=== PATIENT | male | born 1985 | race American Indian/Alaskan Native ===

== ENCOUNTER 2021-06-19 14:00 | Emergency (ER) | payer SELFPAY ==
--- NOTE | 2021-06-19 14:09 | Emergency Department Report ---
ED General Adult HPI - General Chief complaint: High BP Stated complaint: STROKE LIKE SYMPTOMS RESOLVED Time Seen by Provider: 06/19/21 14:06 Source: patient Mode of arrival: Stretcher Limitations: No Limitations - History of Present Illness Initial comments: Patient presents with elevated blood pressure. Patient has been out of medication for at least a week. He was on 3 different medications for blood pressure. Today while at work he started to feel lightheaded. He felt like he had a headache. He thought his blood pressure was high. As he was wrapping pallets, he developed some numbness in his left hand. He went to wash his hands and the numbness immediately resolved. Patient states that he went and told his boss. He was not feeling well and felt like he had to hold onto things to stay upright. He was not having chest pain. He had no trouble breathing at that time. There was no cough or congestion. Patient was brought in by ambulance for evaluation. They report his blood pressure was 270s over 170s. - Related Data Allergies Allergy/AdvReac Type Severity Reaction Status Date / Time No Known Allergies Allergy Unverified 06/19/21 14:03 ED Review of Systems ROS: Stated complaint: STROKE LIKE SYMPTOMS RESOLVED Other details as noted in HPI Comment: All other systems reviewed and negative Constitutional: denies: fever Eyes: denies: vision change ENT: denies: throat pain Respiratory: denies: cough Cardiovascular: denies: chest pain Endocrine: denies: unexplained weight loss Gastrointestinal: denies: abdominal pain Genitourinary: denies: dysuria Musculoskeletal: denies: back pain Skin: denies: rash Neurological: as per HPI Hematological/Lymphatic: denies: easy bruising ED Past Medical Hx - Past Medical History Hx Hypertension: Yes - Family History Family history: hypertension ED Physical Exam - General Limitations: No Limitations, Other (Pulse ox noted and normal) General appearance: alert, in no apparent distress - Head Head exam: Present: atraumatic, normocephalic, normal inspection - Eye Eye exam: Present: PERRL, EOMI, other (Right subconjunctival hemorrhage). Absent: scleral icterus - ENT ENT exam: Present: normal orophraynx, normal external ear exam - Neck Neck exam: Present: normal inspection. Absent: tenderness, meningismus - Respiratory Respiratory exam: Present: normal lung sounds bilaterally. Absent: respiratory distress - Cardiovascular Cardiovascular Exam: Present: regular rate, normal rhythm - GI/Abdominal GI/Abdominal exam: Present: soft. Absent: distended, tenderness - Extremities Exam Extremities exam: Present: normal capillary refill. Absent: calf tenderness - Back Exam Back exam: Absent: CVA tenderness (R), CVA tenderness (L) - Neurological Exam Neurological exam: Present: alert, oriented X3, CN II-XII intact, normal gait, motor sensory deficit, other (NIH score is 0). Absent: reflexes normal - Psychiatric Psychiatric exam: Present: normal affect, normal mood - Skin Skin exam: Present: warm, dry ED Course Vital Signs 06/19/21 06/19/21 06/19/21 14:11 14:18 14:20 Pulse Rate 80 Respiratory 16 0 L 18 Rate Blood Pressure Blood Pressure 180/110 [Left] O2 Sat by Pulse 100 100 98 Oximetry 06/19/21 06/19/21 06/19/21 14:29 14:30 14:46 Pulse Rate 68 64 70 Respiratory 9 L 17 Rate Blood Pressure 228/143 228/143 219/142 Blood Pressure [Left] O2 Sat by Pulse 100 99 Oximetry 06/19/21 06/19/21 14:53 15:00 Pulse Rate 73 Respiratory 9 L Rate Blood Pressure 218/143 Blood Pressure 240/146 [Left] O2 Sat by Pulse 100 Oximetry - Reevaluation(s) Reevaluation #1: 06/19/21 14:06 EMS was met. Manual blood pressure was requested. Reevaluation #2: 06/19/21 14:12 9 her blood pressure was 180/110. Oral medications have been ordered. Reevaluation #3: 06/19/21 15:01 Blood pressures are noted. Map is significantly elevated. Cardene drip was ordered along with labs. Patient will require admission for hypertensive emergency. Reevaluation #4: 06/19/21 16:08 Chemistries are noted. ED Medical Decision Making - Lab Data Result diagrams: 06/19/21 15:07 06/19/21 15:07 Rhythm strip: Normal sinus rhythm without ectopy. Monitor observe 10 seconds. - Radiology Data Radiology results: report reviewed - Medical Decision Making Patient presents with hypertensive emergency. He had transient numbness of his left hand. CT findings are concerning for press syndrome. Cardene drip has been started. We have dosed the patient with hydralazine and amlodipine, his usual medications at home. I did not order nifedipine as the computer defaults to amlodipine for this. Case was discussed with Dr. Plasencia regarding the admission. He does have elevated BUN and creatinine. He states that he has been told that these are elevated in the past but we have no old records for comparison. He is uncertain whether anybody has ever done an ultrasound to look at his renal arteries. Critical Care Time: Yes (45 minutes exclusive of all procedures) Critical care attestation.: If time is entered above; I have spent that time in minutes in the direct care of this critically ill patient, excluding procedure time. ED Disposition Clinical Impression: Noncompliance, Hypertensive emergency, CHRISTIANO (acute kidney injury), S ubconjunctival hemorrhage of right eye Disposition: ADMITTED INPATIENT Is pt being admited?: Yes Condition: Stable Instructions: Hypertension (ED)
[2021-06-19] MEDS ORDERED: amLODIPine 5 MG TAB PO ONE (14:11)
[2021-06-19] MEDS ORDERED: niCARdipine DRIP 40 MG/200 ML BAG IV ONE (15:00)
[2021-06-19 15:47] LABS: Calcium 8.9 mg/dL (8.4-10.2)
--- NOTE | 2021-06-19 16:02 | Cat Scan Report ---
CT HEAD WITHOUT CONTRAST INDICATION / CLINICAL INFORMATION: Uncontrolled hypertension, headache, evaluate for. TECHNIQUE: All CT scans at this location are performed using CT dose reduction for ALARA by means of automated e xposure control. COMPARISON: None available. FINDINGS: HEMORRHAGE: No evidence of intracranial hemorrhage or extra-axial fluid collection. EXTRA-AXIAL SPACES: Cortical sulci, sylvian fissures and basilar cisterns have an unremarkable appear ance. VENTRICULAR SYSTEM: The third and lateral ventricles are diminutive in size. This can be a normal fin ding in a 36-year-old individual. In light of white matter findings (described below) possibility of mass effect related to possible cerebral edema which also be considered. CEREBRAL PARENCHYMA: Fairly diffuse white matter lucency is observed in both cerebral hemispheres. Gi refugio the patient's history of hypertension possibility of PRES as can be considered. Further evaluatio n to include MRI brain without and with intravenous contrast material is suggested. MIDLINE SHIFT OR HERNIATION: There is no mass effect. CEREBELLUM / BRAINSTEM: Brainstem and cerebellum have an unremarkable appearance. MIDLINE STRUCTURES:No abnormalities of the pituitary gland or pineal region are identified. INTRACRANIAL VESSELS:No abnormalities are identified on this noncontrast head CT. ORBITS: visualized portions of the orbits have an unremarkable appearance. SOFT TISSUES of HEAD: No significant abnormality. CALVARIUM: Evaluation of bone windows reveals no abnormalities. PARANASAL SINUSES / MASTOID AIR CELLS: Visualized portions of the paranasal sinuses are free from inf lammatory mucosal disease. Mastoid air cells are normally pneumatized. IMPRESSION: 1. Periventricular and deep white matter lucency is present throughout both cerebral hemispheres. Pos sibility of PRES should be considered. Further evaluation to include MRI brain without and with intra venous contrast is recommended. 2. No indication of intercranial hemorrhage. Signer Name: Theodore Osullivan MD Signed: 06/19/2021 3:57 PM Workstation Name: [email or web address]
[2021-06-19 16:10] LABS: Hematocrit 35.3 % (35.5-45.6); Hemoglobin 11.2 gm/dl (11.8-15.2); Mean Corpuscular HGB Conc 32 % (32-34); Mean Corpuscular Volume 93 fl (84-94); Platelet Count 268 K/mm3 (140-440); Red Blood Count 3.79 M/mm3 (3.65-5.03)
[2021-06-19] MEDS ORDERED: hydrALAZINE 25 MG TAB PO ONE (16:35)
[2021-06-19] MEDS ORDERED: hydroCHLOROthiazide 25 MG TAB PO ONE (18:54)
--- NOTE | 2021-06-19 19:52 | Event Note ---
36 YO Male with HTN, Medication Noncompliance who was lost to outpatient follow- up presents to ED for evaluation. Patient states that he experienced "lightheadedness while he was at work". EMS was notified and upon arrival the patient was found to be hypertensive with systolic blood pressure in the 270s. The patient was subsequent transported [facility] for further care and evaluation of the aforementioned symptoms. The patient was seen and evaluated in the emergency department. All lab and imaging studies reviewed. The patient acknowledges noncompliance with oral antihypertensive therapy for the previous 4 months due to lack of having a primary care physician. Patient underwent CT scan of the head which did not reveal any acute findings. Patient symptoms resolved with resumption of oral antihypertensive therapy. Patient resumed on prehospital therapy with normalization of blood pressure. Patient medically optimized and back to usual state of health and subsequent discharged home instructed to follow-up primary care physician within 3 to 5 days with blood pressure log. Patient counseled regarding medication compliance. Patient knowledges understanding instructions. - General Limitations: No Limitations, Other (Pulse ox noted and normal) General appearance: alert, in no apparent distress - Head Head exam: Present: atraumatic, normocephalic, normal inspection - Eye Eye exam: Present: PERRL, EOMI, other (Right subconjunctival hemorrhage). Absent: scleral icterus - ENT ENT exam: Present: normal orophraynx, normal external ear exam - Neck Neck exam: Present: normal inspection. Absent: tenderness, meningismus - Respiratory Respiratory exam: Present: normal lung sounds bilaterally. Absent: respiratory distress - Cardiovascular Cardiovascular Exam: Present: regular rate, normal rhythm - GI/Abdominal GI/Abdominal exam: Present: soft. Absent: distended, tenderness - Extremities Exam Extremities exam: Present: normal capillary refill. Absent: calf tenderness - Back Exam Back exam: Absent: CVA tenderness (R), CVA tenderness (L) - Neurological Exam Neurological exam: Present: alert, oriented X3, CN II-XII intact, normal gait, motor sensory deficit, other (NIH score is 0). Absent: reflexes normal - Psychiatric Psychiatric exam: Present: normal affect, normal mood - Skin Skin exam: Present: warm, dry
[2021-06-19 20:18] LABS: Bacteria,Urine 1+ /HPF (Negative); Bilirubin,Urine NEG (Negative); Blood,Urine SM (Negative); Color,Urine Colorless (Yellow); Urobilinogen,Urine < 2.0 mg/dL (<2.0)
[2021-06-19 20:20] LABS: Protein,Urine >500 mg/dL (Negative)
[2021-06-19 21:26] LABS: Amphetamine Screen,Urine Negative; Benzodiazepines Screen,Urine Negative; Cannabinoid Screen,Urine Negative; Cocaine Screen,Urine Negative; Methadone Screen,Urine Negative; Opiate Screen,Urine Negative
[2021-06-19 21:31] VITALS: BP 162/110
== END 2021-06-19 20:45 | disposition admitted as inpatient to this hospital (09) ==
LOC: ED 14:00
DX: I16.1 Hypertensive emergency (principal); I12.9 Hypertensive chronic kidney disease with stage 1 through stage 4 chronic kidney disease, or unspecified chronic kidney disease; N18.9 Chronic kidney disease, unspecified; N17.9 Acute kidney failure, unspecified; H11.31 Conjunctival hemorrhage, right eye; Z79.899 Other long term (current) drug therapy
CPT/HCPCS: 36415; 70450; 80048; 80307; 81001; 83735; 85027; 96365; 96366; 96375; 99291; J3490